=== PATIENT | male | born 1965 | race Caucasian/White ===

== ENCOUNTER 2019-06-25 01:59 | Emergency (ER) | payer SELFPAY ==
[2019-06-25 02:01] VITALS: BP 208/107; PULSE 78; RESP 14; TEMP 36.5; O2SAT 97; BMI 26.9
[2019-06-25 02:08] VITALS: BP 189/110; PULSE 77; RESP 17; O2SAT 97
[2019-06-25 02:16] LABS: Bedside Glucose 390 mg/dL (70-110)
--- NOTE | 2019-06-25 02:30 | CT_ITS ---
STUDY: CT BRAIN WITHOUT CONTRAST REASON FOR EXAM: Male, 54 years old. LIGHTHEADED, BLURRY VISION, DIZZINESS SINCE THURSDAY, STAGGERING AT WORK SINCE 2229. RADIATION DOSAGE (If Supplied By Facility): CTDIvol = ( 44.99 ) mGy, DLP = ( 863.60 ) mGycm TECHNIQUE: Transaxial CT imaging of the brain was performed without administration of intravenous contrast material. Individualized dose optimization techniques were used for this CT. COMPARISON: No relevant priors. FINDINGS: Normal soft tissue structures. Normal calvarium. Normal size ventricles and extra-axial spaces for the patient''s age. Normal white matter tracts of the cerebral hemispheres. Normal basal ganglia and thalami. Normal brainstem. Normal cerebellum. There is no intracranial hemorrhage. There are no findings of an acute ischemic infarction. Normal visualized paranasal sinuses. CT/Brain/Head without Contrast IMPRESSION: Normal unenhanced CT scan of the brain. Electronically Signed: Dee Dee Ellison MD at 3:22 EST , Service support ,
--- NOTE | 2019-06-25 02:32 | EKG12_ITS ---
Test Reason : Blood Pressure : / mmHG Vent. Rate : 075 BPM Atrial Rate : 075 BPM P-R Int : 176 ms QRS Dur : 094 ms QT Int : 414 ms P-R-T Axes : 013 -02 -55 degrees QTc Int : 462 ms Normal sinus rhythm Nonspecific ST and T wave abnormality Prolonged QT Abnormal ECG Confirmed by KEREN VERDE, AISSATOU ([id number]), non linear editor JOSE FREDERICK ([id number] on 06/27/2019 3:32:45 PM Referred By: BB Confirmed By:AISSATOU VELIZ MD
[2019-06-25] MEDS: 0.9% Normal Saline 1,000 ML 1000 ML IV (02:43)
[2019-06-25] MEDS: Ondansetron 4 MG/2 ML Vial IV (02:44)
--- NOTE | 2019-06-25 03:02 | ED.VIS.GEN ---
History of Present Illness Chief Complaint: Dizziness Informant: Patient, Significant Other Onset: Weeks - 1 Context: Gradual Onset, - - Occur randomly, no known trigger Timing: Intermittent, Lasts - Several minutes usually Quality: Off balance/dizziness without near syncope or syncope Location: Head Current Severity: Gone now Maximum Severity: Severe Worsened by: Unknown Relieved by: Unknown Associated Symptoms: Nausea just tonight. Fullness-sensation in the right temporal area/ear. Narrative: Patient denies any tinnitus. No recent head injury. He denies any halima vertiginous symptoms. Mostly feeling off balance and like I am drunk. He denies any diplopia but does have blurry vision when this occurs, and denies any lateralizing peripheral neurologic symptoms in his arms or legs. He denies any bowel or bladder dysfunction. No chest pain, palpitations or racing heartbeat, or abdominal pain when he has any of this, and no neck pain. states she is a diabetic and he has used her meter to check his blood sugar before. For the past 2 years, she has noticed that his blood sugars often are high. They vary between 200 - 400s mostly, when she is checking it. He never sees a doctor, and therefore has no known medical problems, even in the past 2 years when she has told him that his blood sugars been very high. Past Medical History - Allergies and Home Meds Allergies/Adverse Reactions: Allergies No Known Allergies Allergy (Verified 06/25/19 02:02) Primary Care Physician: NOT,DEFINED [NON-STAFF] - Past Medical History: None Lives: Spouse/ Significant Other Smoking Status: Never smoker Alcohol: None Drugs: None Review of Systems General: Reports: Malaise, - - dizziness -- see HPI. Denies: Chills, Fever, Sweats Eyes: Reports: Blurred Vision - bilaterally - only when symptomatic; gone now. Denies: Visual changes - bilaterally, Diplopia ENT: Reports: - - right ear fullness. Denies: Bilateral ear pain, Rhinorrhea, Sore throat Cardiovascular: Denies: Chest pain, Palpitations Respiratory: Denies: Dyspnea, Cough, Dyspnea on exertion Gastrointestinal: Reports: Nausea. Denies: Abdominal pain, Vomiting, Diarrhea, Melena, Hematochezia Genitourinary: Denies: Dysuria, Hematuria, Frequency Musculoskeletal: Denies: Neck pain, Back pain, Swelling, Extremity Pain Skin: Denies: Rash, Wounds Neurological: Reports: Headache - right temporal fullness, not pain/headache. Denies: Weakness, Parasthesia, Numbness Endocrine: Reports: Polyuria, Polydipsia. Denies: Heat intolerance, Cold intolerance Physical Exam Vital Signs/Narrative: Vital Signs Temp Pulse Resp BP Pulse Ox 06/25/19 02:08 77 17 189/110 H 97 06/25/19 02:01 97.7 F L 78 14 208/107 H 97 Inital Vital Signs reviewed: Yes General: Well nourished, Well developed, No Acute Distress Head: Normocephalic, Atraumatic Eyes: Perrl, EOMI, - - no nystagmus horiz, vert, or rotatory ENT: Moist mucous membranes, No rhinorrhea, TM's clear. Negative for: Sinus tenderness Neck: Supple, Nontender, No lymphadenopathy, No JVD Cardiovascular: Regular rate, Regular rhythm, No murmurs Respiratory: No distress, CTA bilaterally, Chest nontender Abdomen: Soft, Nontender, Nondistended, Normal bowel sounds Back: Nontender, Normal Inspection Extremities: Nontender, No edema Skin: Normal color, No rash Neurological: Alert, Oriented x3, Cranial nerves II-XII grossly intact, Normal Strength, Normal Sensation, Normal DTR, Normal Gait, - - normal FTN and HTS bilat. no clonus. neg [place] bilat. Psychological: Normal affect, Normal Mood Diagnostic/Tx/Re-eval Impressions Brain CT 06/25/19 02:30 IMPRESSION: Normal unenhanced CT scan of the brain. Electronically Signed: Dee Dee Ellison MD at 3:22 EST , Service support , 06/25/19 02:30 Brain/Head without Contrast [CT] Stat Laboratory Results 06/25/19 06/25/19 06/25/19 02:05 02:05 02:05 WBC 9.2 RBC 5.45 Hgb 15.8 Hct 47.0 MCV 86.2 MCH 29.0 MCHC 33.6 RDW Std Deviation 39.5 RDW Coeff of Pradeep 12.8 Plt Count 280 MPV 9.1 Immature Gran % (Auto) 0.400 Neut % (Auto) 81.7 H Lymph % (Auto) 13.2 L [place] % (Auto) 3.5 Eos % (Auto) 0.7 Baso % (Auto) 0.5 Absolute Neuts (auto) 7.5 Absolute Lymphs (auto) 1.21 Nucleated RBC % 0 Sodium 137 Potassium 4.0 Chloride 103 Carbon Dioxide 27.0 Anion Gap 7 BUN 11 Creatinine 0.90 Estim Creat Clear Calc 104.19 Est GFR (MDRD) Af Amer 114 Est GFR (MDRD) Non-Af 94 BUN/Creatinine Ratio 12.2 Glucose 388 H Calcium 8.9 Troponin I < 0.015 Urine Color Urine Clarity Urine pH Ur Specific [place] Urine Protein Urine Glucose (UA) Urine Ketones Urine Occult Blood Urine Nitrite Urine Bilirubin Urine Urobilinogen Ur Leukocyte Esterase Urine RBC Urine WBC Ur Squamous Epith Cells Urine Bacteria Urine Mucus Acetone Level NEGATIVE POC Glucose 06/25/19 06/25/19 06/25/19 02:11 04:35 04:52 WBC RBC Hgb Hct MCV MCH MCHC RDW Std Deviation RDW Coeff of Pradeep Plt Count MPV Immature Gran % (Auto) Neut % (Auto) Lymph % (Auto) [place] % (Auto) Eos % (Auto) Baso % (Auto) Absolute Neuts (auto) Absolute Lymphs (auto) Nucleated RBC % Sodium Potassium Chloride Carbon Dioxide Anion Gap BUN Creatinine Estim Creat Clear Calc Est GFR (MDRD) Af Amer Est GFR (MDRD) Non-Af BUN/Creatinine Ratio Glucose Calcium Troponin I Urine Color Yellow Urine Clarity Clear Urine pH 7.0 Ur Specific [place] 1.010 Urine Protein Negative Urine Glucose (UA) 1000 H Urine Ketones 5 H Urine Occult Blood Negative Urine Nitrite Negative Urine Bilirubin Negative Urine Urobilinogen Normal Ur Leukocyte Esterase Negative Urine RBC 0 SEEN Urine WBC 0-5 SEEN Ur Squamous Epith Cells 0 SEEN Urine Bacteria 1+ Urine Mucus 0 SEEN Acetone Level POC Glucose 390 H 255 H - Rhythm Strip Rhythm Strip: Sinus Rhythm Rate: 75 Ectopy: None - EKG Initial EKG Interpretation: Sinus Rhythm, No Acute Injury Pattern, Non-Specific ST Changes - inf-laterally Prior: Changed - but most recent EKG from 05/2004, 15 yrs ago - Medical Decision Making As above, other than hyperglycemia, his work-up is fairly unremarkable. He has had significantly elevated blood pressure as well. He was given labetalol. On reexamination his blood sugars down into the 200s and his blood pressure is 141/97 and he feels relatively well. Given all of the ancillaries there is no need for admission at this time. Obviously his blood pressure and blood sugar have probably been issues chronically. There is no sign of a stroke on head CT, and he has been having symptoms for a week. Given the timing, no IV TPA or thrombectomy would be indicated so no stroke team was called. He has no insurance and no PCP. I will refer him to the [facility] in [facility], and start him on both metformin and lisinopril. These are medications he will likely be able to afford and therefore more likely to take. Discussed with him and the at length, they are comfortable with this overall plan. ED Disposition - Plan for ED Patient: Disposition: Home or Assisted Living Diagnosis: Accelerated hypertension, Hyperglycemia, Intermittent vertigo Instructions: VERTIGO, Unspecified, Malignant Hypertension, HYPERGLYCEMIA, NEW ONSET (Diabetes Suspected) Prescriptions: Lisinopril 20 mg PO DAILY #30 tab Transmission Status: Pending to [facility] - [place] Metformin HCl 500 mg PO BID #60 tab Transmission Status: Pending to [facility] [place] Referrals: Marleny Curtis [NON-STAFF] - As soon as possible
[2019-06-25 03:04] LABS: Absolute Lymphocyte Count 1.21 X10^3/uL (0.83-4.51); Absolute Neutrophil Count 7.5 X10^3/uL (2.0-7.7); Basophil# 0.05 X10^3/uL; Basophil% 0.5 % (0-1); Eosinophil# 0.06 X10^3/uL; Eosinophils% 0.7 % (0-5); Hemoglobin 15.8 g/dL (13.0-16.5); Lymphocyte # 1.21 X10^3/ul (4.0); Lymphocyte % 13.2 % (19-41); Mean Corp Hgb Conc 33.6 g/dL (32-36); Mean Corpuscular Volume 86.2 fL (80-94); Mean Platelet Vol. 9.1 fl (6.2-12.0); Monocyte# 0.32 X10^3/uL; Monocyte% 3.5 % (0-10); NRBC Flagged by Analyzer 0 % (0-5); Neutrophil # 7.51 X10^3/uL (2.7-7.7); Neutrophil % 81.7 % (47-70); Platelet Count 280 K/mm3 (150-450); RBC Distribution Width CV 12.8 % (11.6-14.6); RBC Distribution Width SD 39.5 fl (35.1-43.9); Red Blood Count 5.45 M/mm3 (4.6-6.2); White Blood Count 9.2 K/mm3 (4.4-11.0)
[2019-06-25] MEDS: Insulin Lispro 100 UNIT/ML INSULN.PEN 10 UNIT SC (03:20)
[2019-06-25 03:27] LABS: Anion Gap 7 (5-15); BUN 11 mg/dL (7-18); BUN/Creat Ratio 12.2 RATIO (10-20); Calcium,Total 8.9 mg/dL (8.5-10.1); Chloride 103 mmol/L (98-107); EST Glomerular Filtration Rate 94 mL/min (>60); Est Glom Filt Rate - Afr Amer 114 mL/min (>60); Estimated Creatinine Clearance 104.19 ml/min; Glucose 388 mg/dL (74-106); Sodium Level 137 mmol/L (136-145)
[2019-06-25 04:27] VITALS: BP 141/97
[2019-06-25 04:42] LABS: Mucous, Urine 0 SEEN /hpf (<or=2+); Red Blood Cells-Urine 0 SEEN /hpf (0-5); Squamous Epithelial Cells - UA 0 SEEN /hpf (0-5)
[2019-06-25 04:43] LABS: Color, Urine Yellow (Yellow); Glucose, Dipstick 1000 mg/dl (Normal); Ketone-Dipstick 5 mg/dl (Negative); Leukocyte Esterase-Dipstick Negative /ul (Negative); Nitrite-Dipstick Negative (Negative); Occult Blood-Urine Negative /ul (Negative); Protein-Dipstick Negative (Negative); Urine Bilirubin Dipstick Negative (Negative); Urine Clarity Clear (Clear); Urine Urobilinogen Normal (Normal)
[2019-06-25 04:50] LABS: Bacteria 1+ /hpf (None Seen); White Blood Cells 0-5 SEEN /hpf (0-5)
[2019-06-25 04:55] LABS: Bedside Glucose 255 mg/dL (70-110)
[2019-06-25 06:06] VITALS: BP 150/87; PULSE 64; RESP 15; RESP 16; O2SAT 98
== END 2019-06-25 06:15 | disposition home or self-care (01) ==
PROVIDERS: Emergency Provider Emergency Medicine
DX: I10 Essential (primary) hypertension (principal); R42 Dizziness and giddiness; E11.65 Type 2 diabetes mellitus with hyperglycemia; H53.8 Other visual disturbances; R11.0 Nausea; Z79.84 Long term (current) use of oral hypoglycemic drugs; Z79.899 Other long term (current) drug therapy
CPT/HCPCS: 70450; 80048; 81001; 82009; 82962; 84484; 85025; 93005; 96360; 96361; 99285; J7030; A4216; J2405

== ENCOUNTER 2019-08-07 21:36 | Observation (INO) | payer SELFPAY ==
[2019-08-07] VITALS (7 sets, daily range): BP systolic 173–226; BP diastolic 86–134; PULSE 57–64; RESP 12–17; TEMP 35.5–36.3; O2SAT 96–98; BMI 27.1
--- NOTE | 2019-08-07 21:38 | EKG12_ITS ---
Test Reason : NEURO Blood Pressure : / mmHG Vent. Rate : 059 BPM Atrial Rate : 059 BPM P-R Int : 164 ms QRS Dur : 098 ms QT Int : 434 ms P-R-T Axes : 013 003 270 degrees QTc Int : [address] & T wave abnormality, consider inferolateral ischemia Abnormal ECG Confirmed by MORRIS VERDE, PRECIOSU ([id number]), technical editor JOSE FREDERICK ([id number]) on 08/10/2019 9:31:40 AM Referred By: Tanner Montgomery Confirmed By:PRECIOUS CACERES MD
--- NOTE | 2019-08-07 21:38 | CT_ITS ---
STUDY: CT BRAIN WITHOUT CONTRAST REASON FOR EXAM: Male, 54 years old. STROKE PROTOCOL/RT ARM AND LEG FLACCID/LT FACIAL DROOP RADIATION DOSAGE (If Supplied By Facility): CTDIvol = ( 44.99 ) mGy, DLP = ( 796.11 ) mGycm TECHNIQUE: Transaxial CT imaging of the brain was performed without administration of intravenous contrast material. Individualized dose optimization techniques were used for this CT. COMPARISON: 06/25/2019 FINDINGS: Normal soft tissue structures. Normal calvarium. Normal size ventricles and extra-axial spaces for the patient''s age. Normal white matter tracts of the cerebral hemispheres. Normal basal ganglia and thalami. Normal brainstem. Normal cerebellum. There is no intracranial hemorrhage. Low-density changes are present in the left occipital cortices. This is likely related to acute or subacute ischemia. Normal visualized paranasal sinuses. CT/Brain/Head without Contrast IMPRESSION: Low-density changes are present in the left occipital cortices. This is likely related to acute or subacute ischemia. MRI correlation is recommended if possible. N.B. : The above information has been verbally conveyed by Abhijit Swift MD to David Boss MD, on 08/07/2019 21:55:49 (ET). Electronically Signed: Abhijit Swift MD at 21:56 EDT Tel , Service support ,
--- NOTE | 2019-08-07 21:38 | ED.VIS.STROK ---
History of Present Illness Chief Complaint: Neuro S/Sx Informant: Patient Onset: Today Timing: Continuous Quality and Location: Right Facial Droop, Right Arm Parasthesia, Right Leg Parasthesia, Right Arm Weakness, Right Leg Weakness, Slurred Speech, Expressive Aphasia, Difficulty with Ambulation Onset: upon waking from nap Current Severity: Severe Maximum Severity: Severe Worsened by: n/a Relieved by: n/a Associated Symptoms: Negative for: Headache, Nausea, Vomiting, Chest Pain Narrative: Noted 30 minutes prior to evaluation by significant other that he was incontinent while in bed. Upon waking up he was not able to speak right and he was weak on the right side, EMS was called immediately and a prehospital stroke alert was called. Patient was last seen well with the information that is currently known, 5 or 6 PM and the patient arrives just after 9:30 PM. Prehospital blood pressure over 200 systolic. Girlfriend arrived later, and history obtained from her is as follows: She was doing some remodeling work in her bathroom when he went to sleep and she last saw him normal, and states it was somewhere between 5 or 6 PM, not really sure what time it was. He works third shift so that is why he took a late nap. She got him up around 9 so that he did not oversleep for work and noticed he had wet the bed, and when she got him up she realized that he was not able to move his right side at all, and not able to speak at all but seemed to be able to understand her. 2 days ago, he vomited and was sent home from work as a result and since, he has basically been laying around in bed. At this time the patient denies having headache, chest pain, nausea/vomiting. He states his symptoms do feel improved compared with earlier as above. He was seen in the ER just about 1 month ago and had very high blood pressure and elevated blood sugar and told he was probably diabetic. He was started on lisinopril and Glucophage, he just finished both of those and has yet to follow-up. Past Medical History - Allergies and Home Meds Allergies/Adverse Reactions: Allergies No Known Allergies Allergy (Verified 08/07/19 21:49) Primary Care Physician: Care Physician,No Primary [Primary Care Provider] - Lives: Spouse/ Significant Other Smoking Status: Never smoker Review of Systems General: Denies: Chills, Fever, Sweats Eyes: Denies: Visual changes - bilaterally, Diplopia ENT: Denies: Rhinorrhea, Sore throat Cardiovascular: Denies: Chest pain, Palpitations Respiratory: Denies: Dyspnea, Cough, Dyspnea on exertion Gastrointestinal: Denies: Abdominal pain, Nausea, Vomiting, Diarrhea, Melena, Hematochezia Genitourinary: Denies: Dysuria, Hematuria, Frequency Musculoskeletal: Denies: Back pain, Extremity Pain Skin: Denies: Rash, Wounds Neurological: Reports: Weakness - Right side, Numbness - Right side, - - Speech difficulty. Denies: Headache STROKE Inital Vital Signs reviewed: Yes - NIHSS Initial 1a Level of Consciousness: 0 1b LOC Questions (Score 2 if aphasic/stupor): 0 1c LOC Commands (Only score 1st attempt): 0 2 Best Gaze (If aphasic, use reflexive mvmts.): 0 3 Visual: 0 4 Facial Palsy: 1 5 Motor Arm Right (UN = amputation/fusion): 2 5 Motor Arm Left: 0 6 Motor Leg Right: 1 6 Motor Leg Left: 0 7 Limb ataxia (Only + if out of proportion): 0 8 Sensory (Aphasia/stupor=0 or 1, coma=2): 1 9 Best Language: 1 10 Dysarthria (mute, coma=2, intubated=UN): 1 11 Extinction and Inattention (only scored if +): 0 Total Score: 7 General: Well nourished, Well developed Head: Normocephalic, Atraumatic Eyes: Perrl, EOMI ENT: Moist mucous membranes, No rhinorrhea, - - Posterior oropharynx clear. Airway patent. Neck: Supple, Nontender Cardiovascular: Regular rate, Regular rhythm, No murmurs Respiratory: No distress, CTA bilaterally, Chest nontender Abdomen: Soft, Nontender, Nondistended, Normal bowel sounds Back: Nontender, Normal Inspection Extremities: Nontender, No edema Skin: Normal color, No rash, No Trauma Neurological: Alert, Oriented x3. Negative for: Lethargic Psychological: Normal affect, Normal Mood Diagnostic/Tx/Re-eval Impressions Brain CT 08/07/19 21:38 IMPRESSION: Low-density changes are present in the left occipital cortices. This is likely related to acute or subacute ischemia. MRI correlation is recommended if possible. N.B. : The above information has been verbally conveyed by Abhijit Swift MD to David Boss MD, on 08/07/2019 21:55:49 (ET). Electronically Signed: Abhijit Swift MD at 21:56 EDT Tel , Service support , ADDENDUM: 08/07/19 2203 IMPRESSION: Low-density changes are present in the left occipital cortices. This is likely related to acute or subacute ischemia. MRI correlation is recommended if possible. N.B. : The above information has been verbally conveyed by Abhijit Swift MD to David Boss MD, on 08/07/2019 21:55:49 (ET). Electronically Signed: Abhijit Swift MD at 21:56 EDT Tel , Service support , Head/Neck CTA 08/07/19 21:55 IMPRESSION: The proximal aspect of the left P1 segment of the ASSISTED [employer]IVING [employer]SEKEE[employer] is not clearly visualized. Occlusion of that portion of the vessel is not excluded. Several small adjacent lenticulostriate collaterals are noted. Of note, the distal aspect of the left P1 segment is patent as are the more distal left [employer]IV[employer] segments. Moderate stenosis of the origin of the right [employer]IV[employer]SE[employer]. 50% stenosis of the cavernous left ICA. No CTA evidence of significant arterial pathology in the neck. NASCET criteria was used. Electronically Signed: Abhijit Swift MD at 23:06 EDT Tel , Service support , ADDENDUM: 08/07/19 2322 IMPRESSION: The proximal aspect of the left P1 segment of the ASSIST[employer] LIV[employer] HOUSEK[employer] is not clearly visualized. Occlusion of that portion of the vessel is not excluded. Several small adjacent lenticulostriate collaterals are noted. Of note, the distal aspect of the left P1 segment is patent as are the more distal left ASSISTED LIVING HOUSEK[employer] segments. Moderate stenosis of the origin of the right ASS[employer]IV[employer] HOUSEK[employer]. 50% stenosis of the cavernous left ICA. No CTA evidence of significant arterial pathology in the neck. NASCET criteria was used. N.B. : The above information has been verbally conveyed by Abhijit Swift MD to David Hdez MD, on 08/07/2019 23:15:04 (ET). Electronically Signed: Abhijit Swift MD at 23:06 EDT Tel , Service support , Chest X-Ray 08/07/19 22:10 IMPRESSION: Normal x-ray examination of the chest. Electronically Signed: Abhijit Swift MD at 22:44 EDT Tel , Service support , 08/07/19 21:38 Brain/Head without Contrast [CT] Stat 08/07/19 21:55 CTA Head AND Neck W/ Contrast [CT] Stat 08/07/19 22:10 Chest 1 View [RAD] Stat Laboratory Results 08/07/19 08/07/19 08/07/19 21:50 21:50 21:50 WBC 6.0 RBC 5.14 Hgb 15.0 Hct 44.4 MCV 86.4 MCH 29.2 MCHC 33.8 RDW Std Deviation 39.5 RDW Coeff of Pradeep 12.6 Plt Count 277 MPV 9.1 Immature Gran % (Auto) 0.200 Neut % (Auto) 52.5 Lymph % (Auto) 34.4 [place] % (Auto) 7.9 Eos % (Auto) 4.2 Baso % (Auto) 0.8 Absolute Neuts (auto) 3.1 Absolute Lymphs (auto) 2.06 Nucleated RBC % 0 PT 13.0 INR 1.0 APTT 28.1 Sodium 143 Potassium 3.7 Chloride 110 H Carbon Dioxide 28.0 Anion Gap 5 BUN 11 Creatinine 0.66 L Estim Creat Clear Calc 142.07 Est GFR (MDRD) Af Amer 163 Est GFR (MDRD) Non-Af 135 BUN/Creatinine Ratio 16.8 Glucose 206 H Calcium 8.8 Troponin I < 0.015 - Rhythm Strip Rhythm Strip: Sinus Rhythm Rate: 60 Ectopy: None - EKG Initial EKG Interpretation: Sinus Rhythm, No Acute Injury Pattern, Inverted T-Waves - laterally, Non-Specific ST Changes - laterally - Medical Decision Making Stroke Team Activated: Yes - prehospital Reviewed Inclusion/Exclusion criteria: Yes Was Patient considered for Endovascular Intervention?: No - neg CTA/need for intervention; see below IV Alteplase (t-PA) Administered: No - due to timing Saw and evaluated patient briefly in the EMS bay, EMS took him directly to CT and then to the ED room where I more fully evaluated the patient, see NIH above. CT shows no acute hemorrhage, however according to radiologist, there is subtle asymmetry in the occipital lobe signifying something possibly acute with regards to ischemia occurring in the left occipital lobe. 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 Initial blood pressure for EMS was 214, here it is 177/106. In discussing further with the significant other, we are unable to definitively establish the last known well. She states she was not near a clock and thinks it was sometime between 5 and 6 PM. 6 PM would put him just at the end of the TPA window, [address] out of the 4.5-hour window. In discussing with stroke neurology with [facility], he agrees that since the patient is drastically improved and with this timing discrepancy, he would not recommend giving TPA as it may possibly be given outside of the 4.5-hour window, which I agree with. Patient was emergently sent for CT angiography of the head and neck. Results returned as above. I discussed these again with the neurologist at [facility], he agrees that the patient may be kept here and that no acute intervention would be done or would be needed/indicated for this patient. He recommends aspirin and Plavix. I discussed with the hospitalist, this will likely be started once he passes a swallow evaluation. I reexamined the patient at [address] angiography. He is significantly improved. His right-sided deficits have resolved, he still has some mild aphasia and dysarthria for an NIH of 2, much improved. Blood pressure still elevated 170-180's/110's and being monitored carefully; prn Labetalol ordered if pressures increase over 220/120. Critical care time (excluding procedures): 30-74 minutes - 40 minutes, including time spent discussing with patient, family, consultants, arranging admission, performing direct patient care to bedside ED Disposition - Plan for ED Patient: Disposition: Acute Care [facility] Diagnosis: Acute ischemic stroke Referrals: Care Physician,No Primary [Primary Care Provider] -
[2019-08-07] MEDS: 0.9% Normal Saline 1,000 ML 100 ML IV (21:50)
--- NOTE | 2019-08-07 21:55 | CT_ITS ---
We are attempting to reach an attending provider to discuss findings. An addendum with communication details will be sent when the communication is complete. STUDY: CTA HEAD AND NECK WITH CONTRAST REASON FOR EXAM: Male, 54 years old. RT SIDE FLACCID/LT FACIAL DROOP RADIATION DOSAGE (If Supplied By Facility): CTDIvol = ( 26.01 ) mGy, DLP = ( 714.80 ) mGycm TECHNIQUE: CT angiography was performed with a multi-detector CT scanner. Data acquisition was obtained from the skull base through the vertex following intravenous administration of iSOVUE 370-100ML. MIP images were reconstructed from the axial data set. Post-processing of the angiographic images was performed, with multiplanar reformation and 3D reconstruction. Individualized dose optimization techniques were used for this CT. COMPARISON: Head CT same day FINDINGS: Normal bilateral petrous carotid arteries. Normal right cavernous carotid artery with a normal supraclinoid bifurcation. 50% stenosis of the cavernous left ICA. Normal right A1 segments of the anterior cerebral artery. Normal left A1 segments of the anterior cerebral artery. Normal intact anterior communicating artery (ACOM). Normal bilateral A2 segments of the anterior cerebral arteries. Normal right M1 and M2 segments of the middle cerebral arteries, with a normal M1 bifurcation. Normal left M1 and M2 segments of the middle cerebral arteries, with a normal M1 bifurcation. There is a persistent origin of the right posterior cerebral artery with absence of the posterior communicating artery (PCOM). Moderate stenosis of the origin of this vessel. There is questionably a persistent origin of the left posterior cerebral artery with absence of the posterior communicating artery (PCOM). Normal bilateral vertebral arteries. Diminutive but patent proximal basilar artery with more normal caliber distally. The visualized bilateral superior cerebellar (SCA) arteries are normal. The proximal P1 segment of the left posterior cerebral artery is not clearly visualized. Occlusion of this portion of the vessel cannot be excluded. There are several small collaterals extending from the region of the proximal P1 segment to the lenticulostriate vessels more anteriorly and laterally. The distal aspect of the P1 segment of the left [employer] MA[employer]GER is patent as are the more distal [employer]ARK[employer] E[employer]CEMENT MANAGER segments. There is no demonstrated aneurysm of the nikolai of Jose. AORTIC ARCH: Normal visualized aortic arch. Normal origins of the brachiocephalic, left common carotid, and left subclavian arteries. RIGHT CAROTID ARTERIES: Normal right common carotid artery (CCA). Minimal eccentric calcified bulb plaque. Normal origin of the right internal carotid (ICA) artery without a hemodynamically significant stenosis. Normal visualized cervical portion of the right internal carotid artery. Normal origin of the right external carotid artery (ECA). LEFT CAROTID ARTERIES: Normal left common carotid artery (CCA). Normal left common carotid bulb. Normal origin of the left internal carotid (ICA) artery without a hemodynamically significant stenosis. Normal visualized cervical portion of the left internal carotid artery. Normal origin of the left external carotid artery (ECA). VERTEBRAL ARTERIES: Normal bilateral vertebral arteries. CT/CTA Head AND Neck W/ Contrast IMPRESSION: The proximal aspect of the left P1 segment of the [employer]CEMENT MANAGER is not clearly visualized. Occlusion of that portion of the vessel is not excluded. Several small adjacent lenticulostriate collaterals are noted. Of note, the distal aspect of the left P1 segment is patent as are the more distal left PARKING ENFORCEMENT MANAGER segments. Moderate stenosis of the origin of the right [employer] E[employer] MANAGER. 50% stenosis of the cavernous left ICA. No CTA evidence of significant arterial pathology in the neck. NASCET criteria was used. Electronically Signed: Abhijit Swift MD at 23:06 EDT Tel , Service support ,
[2019-08-07 22:01] LABS: Absolute Lymphocyte Count 2.06 X10^3/uL (0.83-4.51); Absolute Neutrophil Count 3.1 X10^3/uL (2.0-7.7); Basophil# 0.05 X10^3/uL; Basophil% 0.8 % (0-1); Eosinophil# 0.25 X10^3/uL; Eosinophils% 4.2 % (0-5); Hematocrit 44.4 % (40-54); Lymphocyte # 2.06 X10^3/ul (4.0); Lymphocyte % 34.4 % (19-41); Mean Corp Hgb Conc 33.8 g/dL (32-36); Mean Corpuscular Hgb 29.2 pg (27.0-32.0); Mean Corpuscular Volume 86.4 fL (80-94); Mean Platelet Vol. 9.1 fl (6.2-12.0); Monocyte# 0.47 X10^3/uL; Monocyte% 7.9 % (0-10); NRBC Flagged by Analyzer 0 % (0-5); Neutrophil # 3.14 X10^3/uL (2.7-7.7); Neutrophil % 52.5 % (47-70); Platelet Count 277 K/mm3 (150-450); RBC Distribution Width CV 12.6 % (11.6-14.6); RBC Distribution Width SD 39.5 fl (35.1-43.9); Red Blood Count 5.14 M/mm3 (4.6-6.2)
[2019-08-07] MEDS: 0.9% Normal Saline 1,000 ML 999 ML IV (22:01)
[2019-08-07 22:06] LABS: Partial Thromboplast Time 28.1 Seconds (24.1-36.2)
--- NOTE | 2019-08-07 22:10 | RAD_ITS ---
STUDY: X-RAY CHEST REASON FOR EXAM: Male, 54 years old. weakness. TECHNIQUE: Single frontal view of the chest. COMPARISON: None. FINDINGS: The lungs are clear and expanded. There is no demonstrated pleural abnormality. Normal size heart. Normal mediastinum and agustin. Normal visualized pulmonary arteries. Normal visualized aortic arch and descending thoracic aorta. Normal visualized thoracic spine. Normal visualized ribs, clavicles, and shoulders. There is no demonstrated abnormality of the visualized soft tissue structures of the upper abdomen. RAD/Chest 1 View IMPRESSION: Normal x-ray examination of the chest. Electronically Signed: Abhijit Swift MD at 22:44 EDT Tel , Service support ,
[2019-08-07 22:14] LABS: Anion Gap 5 (5-15); BUN 11 mg/dL (7-18); BUN/Creat Ratio 16.8 RATIO (10-20); Calcium,Total 8.8 mg/dL (8.5-10.1); Chloride 110 mmol/L (98-107); Creatinine, Serum 0.66 mg/dL (0.70-1.30); EST Glomerular Filtration Rate 135 mL/min (>60); Est Glom Filt Rate - Afr Amer 163 mL/min (>60); Estimated Creatinine Clearance 142.07 ml/min; Glucose 206 mg/dL (74-106); Potassium 3.7 mmol/L (3.5-5.1); Sodium Level 143 mmol/L (136-145)
--- NOTE | 2019-08-07 23:43 | PCM.HP.STD ---
History of Present Illness Date of Admission: 08/07/19 Chief Complaint: CVA The patient is a 54 year old M with a PMH as below who presents with right-sided weakness and he states and complete inability to speak. By the time he presented to the ER his NIH was about an 8 for strength and sensation. In discussion with his she is the one who stated that he could not move his right side at all. He normally works third shift so he went down to sleep at around 7 PM at that time he was normal and then at 9 PM, he woke up which is when his right-sided weakness and change in speech were noted. He had CTA of his head and neck as well as a CT of his brain, the CT of his brain was unremarkable and the CTA of his neck and head had findings of multiple small vessel disease with a 50% stenosis of the left internal carotid artery. While in the ER his symptoms began to improve and by the time I evaluated him on the floor he had an NIH of 0-1. Lab work in the ED was unremarkable. Past Medical History Allergies No Known Allergies Allergy (Verified 08/07/19 21:49) Home Medications: Ambulatory Orders Medication Instructions Recorded Lisinopril 20 mg PO DAILY #30 tab 06/25/19 Metformin HCl 500 mg PO BID #60 tab 06/25/19 Surgical History: no surgical history Lives: Spouse/ Significant Other Smoking Status: Never smoker Tobacco Use: Non-smoker Alcohol: Sober Drugs: None - *Family History Maternal History Items: Heart Disease Paternal History Items: Unknown Review of Systems Constitutional: Denies: Chills, Fever, Weight Change HEENT: Denies: Head Aches, Sinus Congestion, Sinus Drainage Cardiovascular: Denies: Chest Pain, Palpitations Respiratory: Denies: Cough, Shortness of breath at rest, Sputum production Gastrointestinal: Denies: Abdominal Pain, Nausea, Vomiting Genitourinary: Denies: Dysuria Musculoskeletal: Denies: Joint Pain, Joint Tenderness Skin: Denies: Rash, Wounds Neurological: Reports: Change in Speech, Focal weakness, Numbness, Tingling Psychiatric: Denies: Anxiety, Depression, Homicidal Ideations, Suicidal Ideations Hematologic/ Lymphatic: Denies: Easy Bruising, Easy Bleeding VTE Information - Inpt Only VTE Present on Admission: No Patient Problems: Active and Suspected Problems Acute ischemic stroke (Acute) - Physical Exam Vitals/I&O's: Vital Signs Temp Pulse Resp BP Pulse Ox 97.1 F L 64 15 173/112 H 98 08/07/19 21:51 08/07/19 23:26 08/07/19 23:26 08/07/19 23:26 08/07/19 23:26 Oxygen Delivery Method Room Air Weight: 200 lb 9.93 oz Body Mass Index (BMI) 27.1 Finger Stick Blood Glucose 183 Intake and Output for Last 24 Hours 08/05/19 08/06/19 08/07/19 23:59 23:59 23:59 Intake Total 1000 / 999 Balance 1000 / 1000 General: Alert, Oriented x3, Cooperative, No apparent distress HEENT: Atraumatic, PERRLA, EOMI, Normocephalic Neck: Supple, No JVD Lungs: Clear to auscultation, Normal air movement, No rhonchi, No wheeze, No rales Cardiovascular: Regular rate, Regular Rhythm, Normal S1, Normal S2, No murmurs Abdomen: Soft, Non Tender, Non-Distended, No Hepato-splenomegaly Extremities: No edema, Capillary Refill Less than 3 Seconds Skin: No rashes, No breakdown Musculoskeletal: No Tenderness to Palpation of Joints or Extremities Neurological: Cranial nerves II-XII grossly intact, Deep Tendon Reflexes 2+/4 and Symmetrical, Neuro grossly intact, Motor Exam 5/5 strength throughout, Sensory exam intact to light touch and pain Psych/Mental Status: Normal Affect, Appropriate Laboratory Results 08/07/19 21:50: WBC 6.0, RBC 5.14, Hgb 15.0, Hct 44.4, MCV 86.4, MCH 29.2, MCHC 33.8, RDW Std Deviation 39.5, RDW Coeff of Pradeep 12.6, Plt Count 277, MPV 9.1, Immature Gran % (Auto) 0.200, Neut % (Auto) 52.5, Lymph % (Auto) 34.4, [place] % (Auto) 7.9, Eos % (Auto) 4.2, Baso % (Auto) 0.8, Absolute Neuts (auto) 3.1, Absolute Lymphs (auto) 2.06, Nucleated RBC % 0 08/07/19 21:50: PT 13.0, INR 1.0, APTT 28.1 04/19/20 21:50: Sodium 143, Potassium 3.7, Chloride 110 H, Carbon Dioxide 28.0, Anion Gap 5, BUN 11, Creatinine 0.66 L, Estim Creat Clear Calc 142.07, Est GFR (MDRD) Af Amer 163, Est GFR (MDRD) Non-Af 135, BUN/Creatinine Ratio 16.8, Glucose 206 H, Calcium 8.8, Troponin I < 0.015 Current Medications Sodium Chloride () 1,000 mls @ 100 mls/hr IV .Q10H ONE Stop: 08/08/19 07:36 Last Admin: 08/07/19 21:50 Dose: 100 mls/hr Documented by: Sodium Chloride 1,000 ml/ N/A 1,000 mls @ 91 mls/hr IV .Q11H KYLE Stop: 08/08/19 21:56 Labetalol HCl (Trandate) 20 mg IV X1 PRN PRN Reason: BLOOD PRESSURE Assessment/Plan All Active Problems Acute ischemic stroke (Acute) 1. CVA -CT of his brain is negative, CTA of his head and neck show small vessel occlusions with 50% stenosis of his left ICA -We will start him on aspirin as well as statin. Will hold his blood pressure medications to allow for permissive hypertension -PRN blood pressure medications in place for blood pressures greater than 220 -Plan for MRI in the morning -NIH is 0 -No echo at this time given coronavirus -PT/OT/speech therapy 2. HTN -He was recently started on lisinopril for blood pressures in the 200s -Once he is outside of the window for permissive hypertension will increase his blood pressure medication -Continue with aspirin and Lipitor 3. DM 2 -He was also found at the same time that his blood pressure was elevated to be a diabetic with blood sugars at 213 -Hold his metformin and place him on a sliding scale insulin, Accu-Cheks AC at bedtime -We will obtain A1c DVT: Ambulation OBSV E&M: 15624 Initial observation care L2
[2019-08-08] VITALS (15 sets, daily range): BP systolic 149–226; BP diastolic 71–115; PULSE 57–87; RESP 15–18; TEMP 36.4–36.9; O2SAT 96–98; BMI 26.0
--- NOTE | 2019-08-08 00:01 | MRI_ITS ---
We are attempting to reach an attending provider to discuss findings. An addendum with communication details will be sent when the communication is complete. STUDY: MRI BRAIN WITHOUT CONTRAST REASON FOR EXAM: Male, 54 years old. cva, left facial droop, rt side flaccid TECHNIQUE: Standardized multiplanar fat and water weighted pulse sequences were obtained. COMPARISON: CT head without contrast 08/07/2019. CTA head and neck with contrast 08/07/2019. FINDINGS: Small nodular restricted diffusion anterior and medial to the old ischemic infarct with cystic encephalomalacia and atrophy in the left lingual gyrus. These are just tiny additional lacunar infarcts added to the old infarct in the left lingual gyrus. Old cortical gyral ischemic infarct with cystic encephalomalacia and atrophy in the left lingual gyrus. Normal ventricles and cisterns. Right anterior periventricular white matter T2 FLAIR hyperintensity focus has central hypointensity. This is an old lacunar cystic infarct. Normal remaining white matter of the cerebral hemispheres. Normal bilateral basal ganglia. Normal thalami. There is no extra-axial fluid accumulation. Normal flow voids within the major intracranial circulation suggesting patency by spin echo criteria. Normal sella turcica, pituitary gland, infundibular stalk, optic chiasm and hypothalamus. Normal tectal plate and pineal gland. Normal midbrain, josefa and medulla. Normal cerebellum. Normal basal cisterns. Normal bilateral temporal bones. Normal bilateral internal auditory canals. No demonstrated orbital abnormality, within the constraints of a routine brain study. Normal visualized paranasal sinuses. Normal calvarium and skull base. Normal visualized soft tissue structures. Normal visualized upper cervical spine. MRI/Brain without Contrast IMPRESSION: 1. Acute nodular lacunar ischemic infarcts in the anterior cortex of the left lingual gyrus added to the pre-existing old cortical gyral ischemic infarct with cystic encephalomalacia and atrophy in the left lingual gyrus. 2. Old lacunar cystic infarct in the right anterior periventricular white matter. Electronically Signed: Ivan Molina MD at 10:42 EDT , Service support ,
[2019-08-08 00:15] LABS: Bedside Glucose 213 mg/dL (70-110)
[2019-08-08] MEDS: Insulin Lispro 100 UNIT/ML INSULN.PEN SC ×4 (06:39→22:32)
[2019-08-08] MEDS: 0.9% Saline Lock 10 ML Syringe IV ×3 (06:39→22:28)
[2019-08-08 06:44] LABS: Absolute Neutrophil Count 4.1 X10^3/uL (2.0-7.7); Basophil# 0.04 X10^3/uL; Basophil% 0.6 % (0-1); Eosinophil# 0.17 X10^3/uL; Eosinophils% 2.5 % (0-5); Hemoglobin 14.1 g/dL (13.0-16.5); Lymphocyte % 30.5 % (19-41); Mean Corp Hgb Conc 33.6 g/dL (32-36); Mean Corpuscular Hgb 28.7 pg (27.0-32.0); Mean Corpuscular Volume 85.4 fL (80-94); Mean Platelet Vol. 9.3 fl (6.2-12.0); Monocyte# 0.47 X10^3/uL; Monocyte% 6.8 % (0-10); NRBC Flagged by Analyzer 0 % (0-5); Neutrophil # 4.08 X10^3/uL (2.7-7.7); Neutrophil % 59.3 % (47-70); Platelet Count 284 K/mm3 (150-450); RBC Distribution Width CV 12.8 % (11.6-14.6); RBC Distribution Width SD 39.8 fl (35.1-43.9); Red Blood Count 4.92 M/mm3 (4.6-6.2); White Blood Count 6.9 K/mm3 (4.4-11.0)
[2019-08-08 06:46] LABS: Bedside Glucose 154 mg/dL (70-110)
[2019-08-08 07:21] LABS: Anion Gap 4 (5-15); BUN 10 mg/dL (7-18); BUN/Creat Ratio 15.4 RATIO (10-20); Calcium,Total 8.8 mg/dL (8.5-10.1); Chloride 109 mmol/L (98-107); Cholesterol 187 mg/dL (200); Creatinine, Serum 0.65 mg/dL (0.70-1.30); EST Glomerular Filtration Rate 137 mL/min (>60); Est Glom Filt Rate - Afr Amer 166 mL/min (>60); Estimated Creatinine Clearance 144.26 ml/min; Glucose 155 mg/dL (74-106); High Density Lipoprotein 31 mg/dL; Potassium 3.7 mmol/L (3.5-5.1); Sodium Level 141 mmol/L (136-145); Triglycerides 85 mg/dL; Very Low Density Lipoprotein 17 mg/dL (5-40)
--- NOTE | 2019-08-08 07:49 | ECHOD_ITS ---
Reason For Study: TIA/CVA Procedure This was a 2D Doppler, Color Flow transthoracic echocardiogram. Exam performed portable in patient room. Left Ventricle Normal LV size. Moderate concentric left ventricular hypertrophy. Left ventricular systolic function is normal. The estimated ejection fraction is 60 %. Stage 1 diastolic dysfunction. No regional wall motion abnormalities noted. Right Ventricle Normal RV size. Normal systolic function. Atria Normal left atrium. Normal right atrium. Bubble contrast study negative for right to left interatrial shunt. Mitral Valve Normal mitral valve. Tricuspid Valve Normal tricuspid valve. Mild (1+) eccentric tricuspid valve insufficiency. Pulmonary artery systolic pressure is 30 mmHg. Aortic Valve Normal aortic valve. Trisinus/trileaflet aortic valve. Pulmonic Valve Normal pulmonic valve. Great Vessels Normal aortic root. The pulmonary artery is normal size. Inferior vena cava collapse with respiration. Pericardium/Pleural No pericardial effusion. Medication Performed a rapid injection of agitated mix of 9 cc saline and 1cc air to assess for atrial septal defect. MMode/2D Measurements & Calculations LVIDd: 4.3 cm IVSd: 1.4 cm Ao root diam: 4.2 cm LVIDs: 3.1 cm LVPWd: 1.3 cm RVDd: 2.5 cm FS: 27.9 % LAV(MOD-bp): 42.7 ml LVAd ap4: 29.3 cm2 SV(MOD-sp4): 52.2 ml LAV(MOD-bp) Indexed: 20.4 ml/m2 EDV(MOD-sp4): 89.6 ml LAV(MOD-sp2): 43.2 ml EDV(sp4-el): 95.2 ml LAV(MOD-sp4): 35.1 ml LVAs ap4: 17.2 cm2 ESV(MOD-sp4): 37.4 ml ESV(sp4-el): 39.7 ml EF(MOD-sp4): 58.2 % EF(sp4-el): 58.3 % SV(sp4-el): 55.5 ml LA A4 area: 13.8 cm2 LA dimension(2D): 3.3 cm RA A4 area: 9.6 cm2 Time Measurements MV dec time: 0.39 sec Doppler Measurements & Calculations MV E max jose: 47.8 cm/sec Lat Peak E' Jose: 10.6 cm/sec Med Peak E' Jose: 4.3 cm/sec MV A max jose: 65.0 cm/sec E/E' lat: 4.5 E/E' med: 11.0 MV E/A: 0.73 Ao V2 max: 132.1 cm/sec LV V1 max: 123.9 cm/sec PA V2 max: 86.5 cm/sec Ao max P.0 mmHg LV V1 max P.1 mmHg TR max jose: 253.2 cm/sec TR max P.7 mmHg Interpretation Summary Normal LV size. Moderate concentric left ventricular hypertrophy. Left ventricular systolic function is normal. The estimated ejection fraction is 60 %. Stage 1 diastolic dysfunction. Mild (1+) eccentric tricuspid valve insufficiency. Bubble contrast study negative for right to left interatrial shunt. Ordering Physician: Lenin Gandhi Referring Physician: Tanner Montgomery Performed By: Sammie Jacobson, RDCS, RVT
[2019-08-08] MEDS: Aspirin 81 MG TAB.CHEW PO (08:01)
[2019-08-08] MEDS: Glucerna Shake 120 ML LIQUID PO ×3 (08:01→16:33)
--- NOTE | 2019-08-08 09:16 | PCM.PN.HOSP ---
Patient Problems: Active and Suspected Problems Acute ischemic stroke (Acute) Reason for Visit: Acute CVA Subjective: Patient is a 54-year-old gentleman with past medical history sent in for hypertension and diabetes mellitus type 2 who presented with right-sided weakness, dysarthria as well as blurry vision Objective: GENERAL: cooperative HEENT: Atraumatic; EYES; Anicteric, Normal Conjunctiva NECK; supple, normal thyroid, RESPIRATORY: Diminished to auscultation CARDIOVASCULAR: Regular S1 S2, GI: soft, normoactive bowel sounds, : No Renal angle tenderness; EXTREMITIES: No edema, no clubbing, MUSCULOSKELETAL: no muscle waisting NEURO: Awake; no lateralizing signs. SKIN: No Rash PSYCH; Flat affect Vitals/I&O's: Vital Signs Temp Pulse Resp BP Pulse Ox 98.4 F 79 16 168/71 H 98 08/08/19 08:02 08/08/19 08:02 08/08/19 08:02 08/08/19 08:02 08/08/19 08:02 Oxygen Delivery Method Room Air Weight: 87.1 kg Body Mass Index (BMI) 26.0 Finger Stick Blood Glucose 183 Intake and Output for Last 24 Hours 08/06/19 08/07/19 08/08/19 23:59 23:59 23:59 Intake Total 1000 / 1216.67 336.67 / 336.67 Balance 1000 / 1216.67 336.67 / 336.67 Laboratory Results 08/07/19 21:50: WBC 6.0, RBC 5.14, Hgb 15.0, Hct 44.4, MCV 86.4, MCH 29.2, MCHC 33.8, RDW Std Deviation 39.5, RDW Coeff of Pradeep 12.6, Plt Count 277, MPV 9.1, Immature Gran % (Auto) 0.200, Neut % (Auto) 52.5, Lymph % (Auto) 34.4, [place] % (Auto) 7.9, Eos % (Auto) 4.2, Baso % (Auto) 0.8, Absolute Neuts (auto) 3.1, Absolute Lymphs (auto) 2.06, Nucleated RBC % 0 08/07/19 21:50: PT 13.0, INR 1.0, APTT 28.1 08/07/19 21:50: Sodium 143, Potassium 3.7, Chloride 110 H, Carbon Dioxide 28.0, Anion Gap 5, BUN 11, Creatinine 0.66 L, Estim Creat Clear Calc 142.07, Est GFR (MDRD) Af Amer 163, Est GFR (MDRD) Non-Af 135, BUN/Creatinine Ratio 16.8, Glucose 206 H, Calcium 8.8, Troponin I < 0.015 08/08/19 00:07: POC Glucose 213 H 08/08/19 06:10: WBC 6.9, RBC 4.92, Hgb 14.1, Hct 42.0, MCV 85.4, MCH 28.7, MCHC 33.6, RDW Std Deviation 39.8, RDW Coeff of Pradeep 12.8, Plt Count 284, MPV 9.3, Immature Gran % (Auto) 0.300, Neut % (Auto) 59.3, Lymph % (Auto) 30.5, [place] % (Auto) 6.8, Eos % (Auto) 2.5, Baso % (Auto) 0.6, Absolute Neuts (auto) 4.1, Absolute Lymphs (auto) 2.10, Nucleated RBC % 0 08/08/19 06:10: Sodium 141, Potassium 3.7, Chloride 109 H, Carbon Dioxide 28.0, Anion Gap 4 L, BUN 10, Creatinine 0.65 L, Estim Creat Clear Calc 144.26, Est GFR (MDRD) Af Amer 166, Est GFR (MDRD) Non-Af 137, BUN/Creatinine Ratio 15.4, Glucose 155 H, Calcium 8.8, Triglycerides 85, Cholesterol 187, LDL Cholesterol 139 H, VLDL Cholesterol 17, HDL Cholesterol 31 L 08/08/19 06:36: POC Glucose 154 H Current Medications Acetaminophen (Tylenol) 650 mg PO Q6H PRN PRN PRN Reason: Pain Score 1-10/Temp > 100.7 F Aspirin (Aspirin, Baby) 81 mg PO DAILY@0800 [facility] Last Admin: 08/08/19 08:01 Dose: 81 mg Documented by: Atorvastatin Calcium (Lipitor) 80 mg PO QHS [facility] Dextrose (D50w Syringe) 0 gm IV X1 PRN; Protocol PRN Reason: Hypoglycemia Glucagon () 1 mg IM .X1 PRN PRN Reason: Hypoglycemia Hydralazine HCl (Apresoline Iv) 5 mg IV Q30M PRN PRN Reason: to maintain BP goals Sodium Chloride () 250 mls @ 15 mls/hr IV .[id number] PRN PRN Reason: Saline Flush Sodium Chloride () 250 mls @ 15 mls/hr IV .[id number] PRN PRN Reason: Additional IVPB Infusion Insulin Human Lispro (Humalog Kwikpen (Bkc)) 0 unit SC ACHS [facility]; Protocol Last Admin: 08/08/19 06:39 Dose: 2 units Documented by: Labetalol HCl (Trandate) 10 - 20 mg IV Q10M PRN PRN PRN Reason: to maintain BP goals Nutritional Formula (Lactose Free) (Glucerna Shake) 120 ml PO TIDCM KYLE Last Admin: 08/08/19 08:01 Dose: 120 ml Documented by: Ondansetron HCl (Zofran) 4 mg IV Q8H PRN PRN PRN Reason: NAUSEA/VOMITING Sodium Chloride () 10 - 40 ml IV UD PRN PRN Reason: SALINE FLUSH Last Admin: 08/08/19 06:39 Dose: 10 ml Documented by: STROKE Vital Signs/Narrative: Vital Signs Temp Pulse Resp BP Pulse Ox 08/08/19 08:02 98.4 F 79 16 168/71 H 98 Medical Necessity - Tobacco Use Smoking Status: Never smoker Tobacco Use: Non-smoker Assessment/Plan All Active Problems Acute ischemic stroke (Acute) Patient is a 54-year-old gentleman with past medical history sent in for hypertension and diabetes mellitus type 2 who presented with right-sided weakness, dysarthria as well as blurry vision 1. Acute CVA ?MRI obtained demonstrated Acute nodular lacunar ischemic infarcts in the anterior cortex of the left lingual gyrus added to the pre-existing old cortical gyral ischemic infarct with cystic encephalomalacia and atrophy in the left lingual gyrus. Admitted to monitored bed placed on neurochecks. Patient was also started on antiplatelet therapy statin therapy. As part of his management CTA and 2D echo and neurology consultation obtained 2. Hypertension ~ blood pressure controlled, home medications continued with dose adjustment as needed 3. Diabetes mellitus type II ~Controlled patient's oral hypoglycemics held. Placed on Accu-Cheks a.c. and at bedtime and covered with sliding scale insulin 4. DVT prophylaxis ~ on enoxaparin Active Medications Acetaminophen (Tylenol) 650 mg PO Q6H PRN PRN PRN Reason: Pain Score 1-10/Temp > 100.7 F Aspirin (Aspirin, Baby) 81 mg PO DAILY@0800 [facility] Last Admin: 08/08/19 08:01 Dose: 81 mg Documented by: Atorvastatin Calcium (Lipitor) 80 mg PO QHS [facility] Dextrose (D50w Syringe) 0 gm IV X1 PRN; Protocol PRN Reason: Hypoglycemia Glucagon () 1 mg IM .X1 PRN PRN Reason: Hypoglycemia Hydralazine HCl (Apresoline Iv) 5 mg IV Q30M PRN PRN Reason: to maintain BP goals Sodium Chloride () 250 mls @ 15 mls/hr IV .[id number] PRN PRN Reason: Saline Flush Sodium Chloride () 250 mls @ 15 mls/hr IV .[id number] PRN PRN Reason: Additional IVPB Infusion Insulin Human Lispro (Humalog Kwikpen (Bkc)) 0 unit SC [facility]; Protocol Last Admin: 08/08/19 06:39 Dose: 2 units Documented by: Labetalol HCl (Trandate) 10 - 20 mg IV Q10M PRN PRN PRN Reason: to maintain BP goals Nutritional Formula (Lactose Free) (Glucerna Shake) 120 ml PO TIDCM [facility] Last Admin: 08/08/19 08:01 Dose: 120 ml Documented by: Ondansetron HCl (Zofran) 4 mg IV Q8H PRN PRN PRN Reason: NAUSEA/VOMITING Sodium Chloride () 10 - 40 ml IV UD PRN PRN Reason: SALINE FLUSH Last Admin: 08/08/19 06:39 Dose: 10 ml Documented by: Inpatient E&M: [id number] Subs Hosp L3
[2019-08-08 11:36] LABS: Bedside Glucose 186 mg/dL (70-110)
--- NOTE | 2019-08-08 14:55 | CASEMGMT ---
Social Work Note Pt presents to [facility] for CVA. SW met with pt. SW introduced self and role at [facility]. Pt is alert and orientated x3. SW completed PHQ-9 with pt, pt scored 1. SW also spoke with pt regarding self-pay as pt is listed as self-pay. Pt states that he currently works, has never applied for medicaid. SW provided pt with self-pay resources including Medicaid application, HCAP application, [place] [employer], RX assistance, [employer] and [employer]. Pt receptive to taking resources, denied additional needs or concerns. SW reviewed notes, and PFS also spoke with pt regarding self-pay. PFS mailed pt HCAP, [employer] form, Medicaid application and Medicaid contact information. Erica Donahue [employer]BOARD INSTRUMENT REPAIRER, [employer]YST[employer]
[2019-08-08 16:45] LABS: Bedside Glucose 177 mg/dL (70-110)
[2019-08-08] MEDS: hydrALAZINE 20 MG/ML Vial 5 MG IV (20:02)
[2019-08-08] MEDS: Atorvastatin Calcium 80 MG Tablet PO (22:32)
[2019-08-08 22:46] LABS: Bedside Glucose 153 mg/dL (70-110)
[2019-08-09] VITALS (7 sets, daily range): BP systolic 157–166; BP diastolic 104–113; PULSE 65–79; RESP 14–17; TEMP 36.6–36.7; O2SAT 96–99; BMI 26.0
[2019-08-09] MEDS: Acetaminophen 325 MG Tablet 650 MG PO (03:51)
[2019-08-09] MEDS: Insulin Lispro 100 UNIT/ML INSULN.PEN SC (06:43)
[2019-08-09 06:56] LABS: Bedside Glucose 183 mg/dL (70-110)
--- NOTE | 2019-08-09 07:33 | DS.PCM_ITS ---
Discharge Date and Diagnosis - Problem List Patient Problems: Active and Suspected Problems Acute ischemic stroke (Acute) Date of Admission: 08/07/19 Date of Discharge: 08/09/19 - Primary Discharge Diagnosis Active and Suspected Problems Acute ischemic stroke (Acute) Hospital Course and Treatment Imaging Results: Clinical Impression(s) from Imaging Studies Brain CT 08/07/19 21:38 IMPRESSION: Low-density changes are present in the left occipital cortices. This is likely related to acute or subacute ischemia. MRI correlation is recommended if possible. N.B. : The above information has been verbally conveyed by Abhijit Swift MD to David Boss MD, on 08/07/2019 21:55:49 (ET). Electronically Signed: Abhijit Swift MD at 21:56 EDT Tel , Service support , ADDENDUM: 08/07/19 2203 IMPRESSION: Low-density changes are present in the left occipital cortices. This is likely related to acute or subacute ischemia. MRI correlation is recommended if possible. N.B. : The above information has been verbally conveyed by Abhijit Swift MD to David Boss MD, on 08/07/2019 21:55:49 (ET). Electronically Signed: Abhijit Swift MD at 21:56 EDT Tel , Service support , Head/Neck CTA 08/07/19 21:55 IMPRESSION: The proximal aspect of the left P1 segment of the [employer] is not clearly visualized. Occlusion of that portion of the vessel is not excluded. Several small adjacent lenticulostriate collaterals are noted. Of note, the distal aspect of the left P1 segment is patent as are the more distal left [employer] segments. Moderate stenosis of the origin of the right [employer]. 50% stenosis of the cavernous left ICA. No CTA evidence of significant arterial pathology in the neck. NASCET criteria was used. Electronically Signed: Abhijit Swift MD at 23:06 EDT Tel , Service support , ADDENDUM: 08/07/19 2322 IMPRESSION: The proximal aspect of the left P1 segment of the [employer] is not clearly visualized. Occlusion of that portion of the vessel is not excluded. Several small adjacent lenticulostriate collaterals are noted. Of note, the distal aspect of the left P1 segment is patent as are the more distal left [employer] segments. Moderate stenosis of the origin of the right [employer]ER. 50% stenosis of the cavernous left ICA. No CTA evidence of significant arterial pathology in the neck. NASCET criteria was used. N.B. : The above information has been verbally conveyed by Abhijit Swift MD to David Hdez MD, on 08/07/2019 23:15:04 (ET). Electronically Signed: Abhijit Swift MD at 23:06 EDT Tel , Service support , Chest X-Ray 08/07/19 22:10 IMPRESSION: Normal x-ray examination of the chest. Electronically Signed: Abhijit Swift MD at 22:44 EDT Tel , Service support , Brain MRI 08/08/19 00:01 IMPRESSION: 1. Acute nodular lacunar ischemic infarcts in the anterior cortex of the left lingual gyrus added to the pre-existing old cortical gyral ischemic infarct with cystic encephalomalacia and atrophy in the left lingual gyrus. 2. Old lacunar cystic infarct in the right anterior periventricular white matter. Electronically Signed: Ivan Molina MD at 10:42 EDT , Service support , ADDENDUM: 08/08/19 1058 IMPRESSION: 1. Acute nodular lacunar ischemic infarcts in the anterior cortex of the left lingual gyrus added to the pre-existing old cortical gyral ischemic infarct with cystic encephalomalacia and atrophy in the left lingual gyrus. 2. Old lacunar cystic infarct in the right anterior periventricular white matter. N.B. : The above information has been verbally conveyed by Ivan Molina MD to Lana Renteria RN, on 08/08/2019 10:51:17 (ET). Electronically Signed: Ivan Molina MD at 10:42 EDT , Service support , Summary of Care Provided: Patient is a 54-year-old gentleman with past medical history sent in for hypertension and diabetes mellitus type 2 who presented with right-sided weakness, dysarthria as well as blurry vision 1. Acute CVA ?MRI obtained demonstrated Acute nodular lacunar ischemic infarcts in the anterior cortex of the left lingual gyrus added to the pre-existing old cortical gyral ischemic infarct with cystic encephalomalacia and atrophy in the left lingual gyrus. Admitted to monitored bed placed on neurochecks. Patient was also started on antiplatelet therapy statin therapy. As part of his management CTA and 2D echo and neurology consultation obtained. Results of CTA as above. 2D echo demonstrated EF of 60% with moderate concentric left ventricular hypertrophy and no significant valvular lesion nor [id number] shunt. Patient was discharged home on dual antiplatelet therapy aspirin and Plavix (for 21 days) as well as statin therapy with plans for patient to follow-up with neurology as outpatient. Patient was also discharged home with a 30-day event monitor. 2. Hypertension ~ blood pressure controlled, home medications continued with dose adjustment as needed 3. Diabetes mellitus type II ~Controlled patient's oral hypoglycemics held. Placed on Accu-Cheks a.c. and at bedtime and covered with sliding scale insulin 4. DVT prophylaxis ~ on enoxaparin Patient Problems: Active and Suspected Problems Acute ischemic stroke (Acute) Objective: GENERAL: cooperative HEENT: Atraumatic; EYES; Anicteric, Normal Conjunctiva NECK; supple, normal thyroid, RESPIRATORY: Diminished to auscultation CARDIOVASCULAR: Regular S1 S2, GI: soft, normoactive bowel sounds, : No Renal angle tenderness; EXTREMITIES: No edema, no clubbing, MUSCULOSKELETAL: no muscle waisting NEURO: Awake; no lateralizing signs. SKIN: No Rash PSYCH; Flat affect - Physical Exam Vitals/I&O's: Vital Signs Temp Pulse Resp BP Pulse Ox 98.1 F 79 16 158/111 H 97 08/09/19 06:41 08/09/19 07:00 08/09/19 06:41 08/09/19 06:41 08/09/19 06:41 Oxygen Delivery Method Room Air Weight: 87.1 kg Body Mass Index (BMI) 26.0 Finger Stick Blood Glucose 183 Intake and Output for Last 24 Hours 08/07/19 08/08/19 08/09/19 23:59 23:59 23:59 Intake Total 1000 / 1216.67 946.67 / 946.67 225 / 225 Balance 1000 / 1216.67 946.67 / 946.67 225 / 225 Laboratory Results 08/08/19 11:30: POC Glucose 186 H 08/08/19 16:31: POC Glucose 177 H 08/08/19 22:31: POC Glucose 153 H 08/09/19 06:37: POC Glucose 183 H Current Medications Acetaminophen (Tylenol) 650 mg PO Q6H PRN PRN PRN Reason: Pain Score 1-10/Temp > 100.7 F Last Admin: 08/09/19 03:51 Dose: 650 mg Documented by: Aspirin (Aspirin, Baby) 81 mg PO DAILY@0800 [facility] Last Admin: 08/08/19 08:01 Dose: 81 mg Documented by: Atorvastatin Calcium (Lipitor) 80 mg PO QHS [facility] Last Admin: 08/08/19 22:32 Dose: 80 mg Documented by: Dextrose (D50w Syringe) 0 gm IV X1 PRN; Protocol PRN Reason: Hypoglycemia Glucagon () 1 mg IM .X1 PRN PRN Reason: Hypoglycemia Hydralazine HCl (Apresoline Iv) 5 mg IV Q30M PRN PRN Reason: to maintain BP goals Last Admin: 08/08/19 20:02 Dose: 5 mg Documented by: Sodium Chloride () 250 mls @ 15 mls/hr IV .[id number] PRN PRN Reason: Saline Flush Sodium Chloride () 250 mls @ 15 mls/hr IV .[id number] PRN PRN Reason: Additional IVPB Infusion Insulin Human Lispro (Humalog Kwikpen (Bkc)) 0 unit [facility]; Protocol Last Admin: 08/09/19 06:43 Dose: 2 units Documented by: Labetalol HCl (Trandate) 10 - 20 mg IV Q10M PRN PRN PRN Reason: to maintain BP goals Last Admin: 08/08/19 22:28 Dose: 20 mg Documented by: Nutritional Formula (Lactose Free) (Glucerna Shake) 120 ml PO TIDCM KYLE Last Admin: 08/08/19 16:33 Dose: 120 ml Documented by: Ondansetron HCl (Zofran) 4 mg IV Q8H PRN PRN PRN Reason: NAUSEA/VOMITING Sodium Chloride () 10 - 40 ml IV UD PRN PRN Reason: SALINE FLUSH Last Admin: 08/08/19 22:28 Dose: 10 ml Documented by: Discharge Diet: 1800 Calorie Control Diet Discharge Activity: Return to Normal Activity Home Medications: Medications to take at Discharge Lisinopril 20 mg PO DAILY #30 tab 06/25/19 Metformin HCl 500 mg PO BID #60 tab 06/25/19 Aspirin [Aspirin, Baby] 81 mg PO DAILY@0800 #90 tab.chew 08/09/19 Atorvastatin Calcium [Lipitor] 80 mg PO QHS #90 tab 08/09/19 Clopidogrel Bisulfate [Plavix] 75 mg PO DAILY #21 tab 08/09/19 Following Prescrptions Were Given to Patient: Aspirin [Aspirin, Baby] 81 mg PO DAILY@0800 #90 tab.chew Transmission Status: Received by [facility] Atorvastatin Calcium [Lipitor] 80 mg PO QHS #90 tab Transmission Status: Received by [facility] Clopidogrel Bisulfate [Plavix] 75 mg PO DAILY #21 tab Transmission Status: Received by [facility] Other Amb Orders: 30 Day Event Recorder [employer] [[facility]] Location: None Selected Primary Care Physician: Care Physician,No Primary [Primary Care Provider] - Disposition: Home Minutes spent on discharge:: 35 Patient Condition:: Stable Medical Necessity - Tobacco Use Smoking Status: Never smoker Tobacco Use: Non-smoker Meaningful Use Info Meaningful Use Diagnoses (Choose all that apply): Ischemic CVA - CVA Therapy Assessed for PT,OT and/or ST?: Yes - Ischemic Stroke Antithrombotic order at d/c?: Yes Dx of Atrial fib/flutter?: No Statins at discharge?: Yes Primary Dx Acute Ischemic CVA?: Yes IV tPA ordered during stay?: No Reason IV t-PA not ordered: Treatment not Indicated Inpatient E&M: 34006 Disch Hosp
--- NOTE | 2019-08-09 07:33 | DCINST_ITS ---
- Discharge Diagnoses Current Active Problems: Current Active and Chronic Problems Acute ischemic stroke (Acute) You will use the following diet at home:: Calorie/Carbohydrate Controlled (specify 1200, 1400, etc) Your food should be the consistency of: Regular Discharge Activity: Return to Normal Activity Allergies/Adverse Reactions: Allergies No Known Allergies Allergy (Verified 08/07/19 21:49) Medications to take at Discharge Lisinopril 20 mg PO DAILY #30 tab 06/25/19 Metformin HCl 500 mg PO BID #60 tab 06/25/19 Aspirin [Aspirin, Baby] 81 mg PO DAILY@0800 #90 tab.chew 08/09/19 Atorvastatin Calcium [Lipitor] 80 mg PO QHS #90 tab 08/09/19 Clopidogrel Bisulfate [Plavix] 75 mg PO DAILY #21 tab 08/09/19 The following prescriptions were given: Aspirin [Aspirin, Baby] 81 mg PO DAILY@0800 #90 tab.chew Transmission Status: Received by [facility] Atorvastatin Calcium [Lipitor] 80 mg PO QHS #90 tab Transmission Status: Received by [facility] Clopidogrel Bisulfate [Plavix] 75 mg PO DAILY #21 tab Transmission Status: Received by [facility] Orders to be completed after discharge: 30 Day Event Recorder [employer]i [[facility]] Location: None Selected Primary Care Physician: Care Physician,No Primary [Primary Care Provider] - Test Results: Test results from this visit will be discussed in further detail at your follow- up appointment, if applicable. Please Follow Up With: STROKE PHYSICIAN @ [facility] Proposed Discharge Date: 08/09/19
[2019-08-09] MEDS: Aspirin 81 MG TAB.CHEW PO (08:08)
== END 2019-08-09 11:00 | disposition home or self-care (01) ==
LOC: ED 23:29 → PCU 23:46
PROVIDERS: Admitting Provider Family Medicine; Emergency Provider Emergency Medicine; Referring Provider Family Medicine; Visit Provider Internal Medicine
DX: I63.81 Other cerebral infarction due to occlusion or stenosis of small artery (principal); R47.01 Aphasia; R29.810 Facial weakness; R53.1 Weakness; R20.2 Paresthesia of skin; I10 Essential (primary) hypertension; E11.9 Type 2 diabetes mellitus without complications; R47.1 Dysarthria and anarthria; H53.8 Other visual disturbances; Z79.899 Other long term (current) drug therapy; Z79.84 Long term (current) use of oral hypoglycemic drugs
CPT/HCPCS: 36415; 70450; 70496; 70498; 70551; 71045; 80048; 80061; 82962; 84484; 85025; 85610; 85730; 92523; 92610; 93005; 93306; 96361; 96374; 96375; 97161; 97166; 97802; 99218; 99285; Q9967; A4216; G0378

== ENCOUNTER → 2019-08-09 11:36 | Outpatient (REF) | payer SELFPAY ==
[2019-08-09 11:18] VITALS: BMI 26.0
== END ==
LOC: CVS 11:36
PROVIDERS: Visit Provider Internal Medicine
DX: I48.91 Unspecified atrial fibrillation (principal)
CPT/HCPCS: 93270; 93271

== ENCOUNTER → 2019-09-20 11:54 | Outpatient (CLI) | payer MEDICAID, SELFPAY ==
[2019-08-18 15:33] VITALS: BMI 26.0
[2019-09-20 12:56] LABS: Erythrocyte Sedimentation Rate 10 mm/hr (0-20)
[2019-09-21 17:16] LABS: ANTINUCLEAR ANTIBODIES DIRECT Negative (Negative)
[2019-09-24 14:26] LABS: Protein C Antigen 95 % (60-150)
[2019-09-26 14:07] LABS: Complement C3 149 mg/dL (82-167); Dilute Prothrombin Time (dPT) 31.4 sec (0.0-55.0); Dilute Russell Viper Venom 28.4 sec (0.0-47.0); PTT-LA 32.7 sec (0.0-51.9); Thrombin Time 16.5 sec (0.0-23.0); dPT Confirm Ratio 0.84 Ratio (0.00-1.40)
[2019-09-26 15:47] LABS: Anti-Cardiolipin Ab, IgA, Qn < 9 APL U/mL (0-11); Anti-Cardiolipin Ab, IgG, Qn 12 GPL U/mL (0-14); Anti-Cardiolipin Ab, IgM, Qn < 9 MPL U/mL (0-12); Anti-Thrombin 3 AG, Immunol 109 % (72-124); Antithrombin 3 Function 104 % (75-135); Complement CH50 > 60 U/mL (>41); Interpretation Comment: (.); Protein C, Functional 106 % (73-180); Protein S, Free 112 % (57-157); Protein S, Funtional 93 % (63-140); Protein S, Total 82 % (60-150)
== END ==
PROVIDERS: Referring Provider Psychiatry & Neurology Neurology; Visit Provider Psychiatry & Neurology Neurology
DX: Z86.73 Personal history of transient ischemic attack (TIA), and cerebral infarction without residual deficits (principal)
CPT/HCPCS: 36415; 81240; 81241; 85300; 85301; 85302; 85303; 85305; 85306; 85652; 86038; 86147; 86160; 86162; 86225; 86235